=== PATIENT | female | born 1970 | race Caucasian/White ===

== ENCOUNTER 2024-01-09 02:26 | Outpatient (RCR) | payer MEDICAID, SELFPAY ==
[2024-01-09] MEDS: Normal Saline Flush 10 ML SYR IVP (08:29)
[2024-01-09 08:49] LABS: Abs Immature Grans 0.02 10^3/uL (0.0-0.06); Absolute Basophil Count 0.06 10^3/uL (0.0-0.2); Absolute Eosinophil Count 0.29 10^3/uL (0.0-0.7); Absolute Lymphocyte Count 1.81 10^3/uL (1.2-3.4); Absolute Monocyte Count 0.41 10^3/uL (0.1-0.8); Absolute Neutrophil Count 3.22 10^3/uL (1.2-6.7); HCT 39.6 % (36.0-46.0); HGB 12.3 g/dL (11.2-15.7); Immature Grans % 0.3 %; Lymphocytes % 31.2 %; MCH 30.4 pg (27.0-33.0); MCHC 31.1 % (32.0-36.0); MCV 98 fL (80-95); MPV 11.6 fL (8.0-11.0); Monocytes % 7.1 %; Neutrophils % 55.4 %; Platelet Count 110 10^3/uL (130-400); RBC 4.05 10^6/uL (3.93-5.22); RDW 14.4 % (11.7-14.6); RDW-SD 52.2 fL; WBC 5.81 10^3/uL (4.4-10.8)
[2024-01-09 09:00] LABS: ALT 36 U/L (14-59); AST 68 U/L (15-37); Albumin 4.1 g/dL (3.4-5.0); Alkaline Phosphatase 65 U/L (46-116); Anion Gap 11.6 mmol/L (3-11); BUN 16 mg/dL (7-18); CO2 24.4 mmol/L (21.0-32.0); CREATININE 0.9 mg/dL (0.55-1.02); Calcium 9.2 mg/dL (8.5-10.1); Chloride 105 mmol/L (98-107); Estimated GFR 75.97 (mL/min/1.73m2); Glucose 189 mg/dL (74-106); Potassium 4.5 mmol/L (3.5-5.1); Sodium 141 mmol/L (136-145); Total Protein 7.7 g/dL (6.4-8.2)
[2024-01-13 11:59] LABS: Cancer Ag 15-3 26 U/mL (<30)
== END 2024-01-16 23:59 | disposition home or self-care (01) ==
LOC: INF 02:26
PROVIDERS: Internal Medicine Medical Oncology
DX: C50.511 Malignant neoplasm of lower-outer quadrant of right female breast (principal); Z17.0 Estrogen receptor positive status [ER+]; Z45.2 Encounter for adjustment and management of vascular access device
CPT/HCPCS: 36591; 80053; 86300; 85025

== ENCOUNTER 2024-01-23 11:59 | Outpatient (CLI) | payer MEDICAID, SELFPAY ==
--- NOTE | 2024-01-23 09:45 | DI.US_ITS ---
Exam(s) US LOWER EXTREMITY VENOUS LT EXAM: US LOWER EXTREMITY VENOUS LT CLINICAL HISTORY: C50.511,Z17.0; Swollen left lower ext, also mass like inflammatory area TECHNIQUE: Left lower extremity venous ultrasound performed using grayscale, color-flow, and spectra l Doppler analysis. COMPARISON: No exams were available for comparison FINDINGS: The left common femoral, femoral and popliteal veins demonstrate normal compressibility, augmentation , and color Doppler. The posterior tibial veins are patent. The saphenofemoral junction is unremarka ble. There is no evidence of a Barcenas cyst. There is minimal increased blood flow seen in the left u pper thigh in the area of erythema but no focal fluid collection is seen to suggest an abscess. No s oft tissue mass is seen sonographically. IMPRESSION: 1. No evidence of a left lower extremity DVT. 2. Very mild increased blood flow in the left upper thigh but no focal fluid collection to suggest an abscess. No soft tissue mass is identified. DATA REPOSITORY:
== END 2024-01-23 12:19 ==
PROVIDERS: PCP Internal Medicine Hematology & Oncology; Visit Provider Internal Medicine Hematology & Oncology
DX: C50.511 Malignant neoplasm of lower-outer quadrant of right female breast (principal); Z17.0 Estrogen receptor positive status [ER+]
CPT/HCPCS: 93971

== ENCOUNTER 2024-02-14 01:07 | Outpatient (RCR) | payer MEDICAID, SELFPAY ==
[2024-02-14] MEDS: Normal Saline Flush 10 ML SYR IVP (09:25)
[2024-02-14 09:27] LABS: Abs Immature Grans 0.01 10^3/uL (0.0-0.06); Absolute Basophil Count 0.09 10^3/uL (0.0-0.2); Absolute Lymphocyte Count 1.54 10^3/uL (1.2-3.4); Absolute Monocyte Count 0.35 10^3/uL (0.1-0.8); Absolute Neutrophil Count 3.37 10^3/uL (1.2-6.7); Basophils % 1.6 %; Eosinophils % 5.3 %; HGB 10.6 g/dL (11.2-15.7); Immature Grans % 0.2 %; Lymphocytes % 27.2 %; MCH 28.7 pg (27.0-33.0); MCHC 30.3 % (32.0-36.0); MCV 95 fL (80-95); MPV 10.7 fL (8.0-11.0); Monocytes % 6.2 %; Neutrophils % 59.5 %; Platelet Count 125 10^3/uL (130-400); RBC 3.69 10^6/uL (3.93-5.22); RDW 15.4 % (11.7-14.6); RDW-SD 53.7 fL; WBC 5.66 10^3/uL (4.4-10.8)
[2024-02-14 09:42] LABS: ALT 22 U/L (14-59); AST 39 U/L (15-37); Albumin 3.9 g/dL (3.4-5.0); Alkaline Phosphatase 70 U/L (46-116); Anion Gap 11.6 mmol/L (3-11); BUN 17 mg/dL (7-18); Bilirubin, Total 0.61 mg/dL (0.2-1.0); CO2 24.4 mmol/L (21.0-32.0); CREATININE 0.9 mg/dL (0.55-1.02); Calcium 9.2 mg/dL (8.5-10.1); Chloride 107 mmol/L (98-107); Estimated GFR 75.97 (mL/min/1.73m2); Glucose 217 mg/dL (74-106); Potassium 4.3 mmol/L (3.5-5.1); Sodium 143 mmol/L (136-145); Total Protein 7.5 g/dL (6.4-8.2)
== END 2024-02-15 23:59 | disposition home or self-care (01) ==
LOC: INF 01:07
DX: C50.511 Malignant neoplasm of lower-outer quadrant of right female breast (principal); Z17.0 Estrogen receptor positive status [ER+]; Z45.2 Encounter for adjustment and management of vascular access device
CPT/HCPCS: 36591; 80053; 85025

== ENCOUNTER 2024-02-27 10:15 | Outpatient (RCR) | payer MEDICAID, SELFPAY ==
[2024-02-27] MEDS: Normal Saline Flush 10 ML SYR IVP (10:28)
[2024-02-27 10:38] LABS: Abs Immature Grans 0.02 10^3/uL (0.0-0.06); Absolute Basophil Count 0.07 10^3/uL (0.0-0.2); Absolute Eosinophil Count 0.31 10^3/uL (0.0-0.7); Absolute Lymphocyte Count 1.73 10^3/uL (1.2-3.4); Absolute Monocyte Count 0.42 10^3/uL (0.1-0.8); Absolute Neutrophil Count 2.93 10^3/uL (1.2-6.7); Basophils % 1.3 %; Eosinophils % 5.7 %; HCT 38.3 % (36.0-46.0); HGB 11.4 g/dL (11.2-15.7); Immature Grans % 0.4 %; Lymphocytes % 31.6 %; MCH 27.4 pg (27.0-33.0); MCHC 29.8 % (32.0-36.0); MCV 92 fL (80-95); MPV 10.6 fL (8.0-11.0); Monocytes % 7.7 %; Neutrophils % 53.3 %; Platelet Count 118 10^3/uL (130-400); RBC 4.16 10^6/uL (3.93-5.22); RDW 14.8 % (11.7-14.6); RDW-SD 50.2 fL; WBC 5.48 10^3/uL (4.4-10.8)
[2024-02-27 11:14] LABS: ALT 7 U/L (14-59); AST 42 U/L (15-37); Albumin 4.1 g/dL (3.4-5.0); Alkaline Phosphatase 65 U/L (46-116); Anion Gap 14.2 mmol/L (3-11); BUN 17 mg/dL (7-18); Bilirubin, Total 0.48 mg/dL (0.2-1.0); CO2 24.8 mmol/L (21.0-32.0); CREATININE 0.9 mg/dL (0.55-1.02); Calcium 9.5 mg/dL (8.5-10.1); Chloride 106 mmol/L (98-107); Estimated GFR 75.97 (mL/min/1.73m2); Glucose 165 mg/dL (74-106); Potassium 4.2 mmol/L (3.5-5.1); Sodium 145 mmol/L (136-145); Total Protein 7.6 g/dL (6.4-8.2)
== END 2024-03-17 23:59 | disposition home or self-care (01) ==
LOC: INF 10:15
PROVIDERS: Internal Medicine Medical Oncology; PCP Internal Medicine Hematology & Oncology
DX: C50.511 Malignant neoplasm of lower-outer quadrant of right female breast (principal); Z17.0 Estrogen receptor positive status [ER+]; Z45.2 Encounter for adjustment and management of vascular access device
CPT/HCPCS: 36591; 80053; 85025

== ENCOUNTER 2024-04-09 03:38 | Outpatient (RCR) | payer MEDICAID, SELFPAY ==
[2024-03-19] MEDS: Normal Saline Flush 10 ML SYR IVP (09:58)
[2024-03-19 10:14] LABS: Abs Immature Grans 0.04 10^3/uL (0.0-0.06); Absolute Basophil Count 0.13 10^3/uL (0.0-0.2); Absolute Eosinophil Count 0.02 10^3/uL (0.0-0.7); Absolute Lymphocyte Count 1.48 10^3/uL (1.2-3.4); Absolute Monocyte Count 0.52 10^3/uL (0.1-0.8); Basophils % 1.9 %; Eosinophils % 0.3 %; HCT 35.5 % (36.0-46.0); HGB 10.6 g/dL (11.2-15.7); Immature Grans % 0.6 %; Lymphocytes % 22.1 %; MCH 27.6 pg (27.0-33.0); MCHC 29.9 % (32.0-36.0); MCV 92 fL (80-95); MPV 10.4 fL (8.0-11.0); Monocytes % 7.8 %; Neutrophils % 67.3 %; Platelet Count 122 10^3/uL (130-400); RBC 3.84 10^6/uL (3.93-5.22); RDW 18.1 % (11.7-14.6); RDW-SD 57.8 fL; WBC 6.69 10^3/uL (4.4-10.8)
[2024-03-19 10:30] LABS: ALT 22 U/L (14-59); AST 46 U/L (15-37); Albumin 3.9 g/dL (3.4-5.0); Alkaline Phosphatase 61 U/L (46-116); Anion Gap 10.2 mmol/L (3-11); BUN 13 mg/dL (7-18); Bilirubin, Total 0.66 mg/dL (0.2-1.0); CO2 26.8 mmol/L (21.0-32.0); CREATININE 0.8 mg/dL (0.55-1.02); Calcium 9.4 mg/dL (8.5-10.1); Chloride 107 mmol/L (98-107); Glucose 141 mg/dL (74-106); Potassium 4.4 mmol/L (3.5-5.1); Sodium 144 mmol/L (136-145); Total Protein 7.2 g/dL (6.4-8.2)
[2024-04-09] MEDS: Normal Saline Flush 10 ML SYR IVP (09:34)
[2024-04-09 09:50] LABS: ALT 28 U/L (14-59); AST 46 U/L (15-37); Albumin 3.8 g/dL (3.4-5.0); Alkaline Phosphatase 67 U/L (46-116); BUN 13 mg/dL (7-18); Bilirubin, Total 0.58 mg/dL (0.2-1.0); CREATININE 0.7 mg/dL (0.55-1.02); Calcium 9.2 mg/dL (8.5-10.1); Chloride 108 mmol/L (98-107); Estimated GFR 102.71 (mL/min/1.73m2); Glucose 190 mg/dL (74-106); Potassium 4.2 mmol/L (3.5-5.1); Sodium 144 mmol/L (136-145); Total Protein 7.1 g/dL (6.4-8.2)
[2024-04-09 10:03] LABS: Abs Immature Grans 0.03 10^3/uL (0.0-0.06); Absolute Basophil Count 0.11 10^3/uL (0.0-0.2); Absolute Eosinophil Count 0.05 10^3/uL (0.0-0.7); Absolute Lymphocyte Count 1.12 10^3/uL (1.2-3.4); Absolute Monocyte Count 0.61 10^3/uL (0.1-0.8); Absolute Neutrophil Count 5.27 10^3/uL (1.2-6.7); Basophils % 1.5 %; Eosinophils % 0.7 %; HCT 34.4 % (36.0-46.0); HGB 10.1 g/dL (11.2-15.7); Immature Grans % 0.4 %; Lymphocytes % 15.6 %; MCH 27.4 pg (27.0-33.0); MCHC 29.4 % (32.0-36.0); MCV 94 fL (80-95); MPV 11.5 fL (8.0-11.0); Monocytes % 8.5 %; Neutrophils % 73.3 %; RBC 3.68 10^6/uL (3.93-5.22); RDW 21.2 % (11.7-14.6); RDW-SD 69.8 fL; WBC 7.19 10^3/uL (4.4-10.8)
[2024-04-09 10:05] LABS: Platelet Count 95 10^3/uL (130-400)
[2024-04-09 10:06] LABS: Anisocytosis 1+
== END 2024-04-17 23:59 | disposition home or self-care (01) ==
LOC: INF 03:38
PROVIDERS: Internal Medicine Medical Oncology; PCP Internal Medicine Hematology & Oncology
DX: C50.511 Malignant neoplasm of lower-outer quadrant of right female breast (principal)
CPT/HCPCS: 36591; 80053; 85025

== ENCOUNTER 2024-05-14 02:39 | Outpatient (RCR) | payer MEDICAID, SELFPAY ==
[2024-05-14] MEDS: Normal Saline Flush 10 ML SYR IVP (10:40)
[2024-05-14 10:57] LABS: Abs Immature Grans 0.01 10^3/uL (0.0-0.06); Absolute Basophil Count 0.04 10^3/uL (0.0-0.2); Absolute Eosinophil Count 0.22 10^3/uL (0.0-0.7); Absolute Lymphocyte Count 1.15 10^3/uL (1.2-3.4); Absolute Monocyte Count 0.32 10^3/uL (0.1-0.8); Absolute Neutrophil Count 2.88 10^3/uL (1.2-6.7); Basophils % 0.9 %; Eosinophils % 4.8 %; HCT 35.6 % (36.0-46.0); HGB 10.3 g/dL (11.2-15.7); Immature Grans % 0.2 %; Lymphocytes % 24.9 %; MCH 26.6 pg (27.0-33.0); MCHC 28.9 % (32.0-36.0); MCV 92 fL (80-95); MPV 9.8 fL (8.0-11.0); Monocytes % 6.9 %; Neutrophils % 62.3 %; Platelet Count 121 10^3/uL (130-400); RBC 3.87 10^6/uL (3.93-5.22); RDW-SD 70.9 fL; WBC 4.62 10^3/uL (4.4-10.8)
[2024-05-14 11:19] LABS: ALT 25 U/L (14-59); AST 49 U/L (15-37); Albumin 3.7 g/dL (3.4-5.0); Alkaline Phosphatase 78 U/L (46-116); Anion Gap 7.5 mmol/L (3-11); BUN 17 mg/dL (7-18); Bilirubin, Total 0.67 mg/dL (0.2-1.0); CO2 27.5 mmol/L (21.0-32.0); CREATININE 0.7 mg/dL (0.55-1.02); Calcium 9.5 mg/dL (8.5-10.1); Chloride 107 mmol/L (98-107); Estimated GFR 102.71 (mL/min/1.73m2); Glucose 158 mg/dL (74-106); Potassium 4.3 mmol/L (3.5-5.1); Sodium 142 mmol/L (136-145); Total Protein 7.4 g/dL (6.4-8.2)
== END 2024-05-15 23:59 | disposition home or self-care (01) ==
LOC: INF 02:39
PROVIDERS: PCP Internal Medicine Hematology & Oncology
DX: C50.511 Malignant neoplasm of lower-outer quadrant of right female breast (principal)
CPT/HCPCS: 36591; 80053; 85025

== ENCOUNTER 2024-12-04 01:04 | Outpatient (CLI) | payer OTHER, SELFPAY ==
[2024-12-04 13:51] LABS: Abs Immature Grans 0.00 10^3/uL (0.0-0.06); HCT 36.5 % (36.0-46.0); HGB 11.1 g/dL (11.2-15.7); Immature Grans % 0.0 %; MCH 26.4 pg (27.0-33.0); MCHC 30.4 % (32.0-36.0); MCV 87 fL (80-95); MPV 10.2 fL (8.0-11.0); RBC 4.20 10^6/uL (3.93-5.22); RDW 20.0 % (11.7-14.6); RDW-SD 64.3 fL; WBC 3.62 10^3/uL (4.4-10.8)
[2024-12-04 14:06] LABS: Platelet Count 87 10^3/uL (130-400); RBC Morphology Normal
[2024-12-04 14:31] LABS: ALT 20 U/L (14-59); AST 39 U/L (15-37); Albumin 3.8 g/dL (3.4-5.0); Alkaline Phosphatase 63 U/L (46-116); Anion Gap 10.1 mmol/L (3-11); BUN 18 mg/dL (7-18); Bilirubin, Total 0.3 mg/dL (0.2-1.0); CO2 26.9 mmol/L (21.0-32.0); Calcium 9.7 mg/dL (8.5-10.1); Chloride 106 mmol/L (98-107); Estimated GFR 86.96 (mL/min/1.73m2); Ferritin 12 ng/mL (8-252); Glucose 173 mg/dL (74-106); Potassium 4.1 mmol/L (3.5-5.1); Sodium 143 mmol/L (136-145); Total Protein 7.5 g/dL (6.4-8.2); Vitamin B12 1791 pg/mL (193-986); Vitamin D 25 Total 27 ng/mL (30-100)
[2024-12-04 14:33] LABS: Folate > 20.0 ng/mL (8.6-20.0)
== END 2024-12-04 01:05 | disposition home or self-care (01) ==
LOC: LBO 01:05
PROVIDERS: PCP Internal Medicine Hematology & Oncology; Visit Provider Nurse Practitioner Family
DX: Z79.899 Other long term (current) drug therapy (principal); Z91.89 Other specified personal risk factors, not elsewhere classified; D69.6 Thrombocytopenia, unspecified; C50.511 Malignant neoplasm of lower-outer quadrant of right female breast; Z17.0 Estrogen receptor positive status [ER+]; D64.9 Anemia, unspecified
CPT/HCPCS: 36415; 80053; 82306; 82607; 82728; 82746; 85025

== ENCOUNTER 2025-03-05 00:48 | Outpatient (CLI) | payer OTHER, SELFPAY ==
[2025-03-05 09:17] LABS: Abs Immature Grans 0.01 10^3/uL (0.0-0.06); HCT 35.4 % (36.0-46.0); HGB 10.6 g/dL (11.2-15.7); Immature Grans % 0.2 %; MCH 25.1 pg (27.0-33.0); MCHC 29.9 % (32.0-36.0); MCV 84 fL (80-95); MPV 10.5 fL (8.0-11.0); RBC 4.23 10^6/uL (3.93-5.22); RDW 17.2 % (11.7-14.6); RDW-SD 52.6 fL; WBC 4.17 10^3/uL (4.4-10.8)
[2025-03-05 09:25] LABS: Platelet Count 84 10^3/uL (130-400); RBC Morphology Normal
[2025-03-05 09:57] LABS: Vitamin D 25 Total 52 ng/mL (30-100)
[2025-03-05 10:04] LABS: ALT 15 U/L (10-49); AST 32 U/L (<34); Albumin 4.1 g/dL (3.2-5.0); Alkaline Phosphatase 70 U/L (46-116); Anion Gap 12.5 mmol/L (3-11); BUN 17 mg/dL (9-23); Bilirubin, Total 0.5 mg/dL (0.2-1.2); CO2 23.5 mmol/L (20.0-31.0); Calcium 9.0 mg/dL (8.3-10.6); Chloride 107 mmol/L (98-107); Glucose 324 mg/dL (74-106); Potassium 4.3 mmol/L (3.5-5.1); Sodium 143 mmol/L (136-145); Total Protein 7.0 g/dL (5.7-8.2)
== END 2025-03-05 00:49 | disposition home or self-care (01) ==
LOC: LBO 00:48
PROVIDERS: PCP Internal Medicine Hematology & Oncology; Visit Provider Nurse Practitioner Family
DX: Z79.899 Other long term (current) drug therapy (principal); Z91.89 Other specified personal risk factors, not elsewhere classified; D69.8 Other specified hemorrhagic conditions; C50.511 Malignant neoplasm of lower-outer quadrant of right female breast; Z17.0 Estrogen receptor positive status [ER+]
CPT/HCPCS: 36415; 80053; 82306; 85025